=== PATIENT | female | born 1995 | race African-American/Black ===

== ENCOUNTER 2017-08-06 19:00 | Emergency (ER) | payer OTHER, SELFPAY ==
[2017-08-06] MEDS ORDERED: Dexamethasone 4 MG TAB ONE (20:03)
== END 2017-08-06 20:38 | disposition home or self-care (01) ==
LOC: ERS 19:00
DX: J06.9 Acute upper respiratory infection, unspecified (principal); F17.210 Nicotine dependence, cigarettes, uncomplicated
CPT/HCPCS: 94640; J7620; J8540

== ENCOUNTER 2019-02-06 19:23 | Emergency (ER) | payer SELFPAY ==
[2019-02-06] MEDS ORDERED: Proparacaine 0.5% Opth 15 ML BOT ONE ×2 (20:13→20:25)
== END 2019-02-06 20:35 | disposition home or self-care (01) ==
LOC: ERS 19:23
DX: H00.013 Hordeolum externum right eye, unspecified eyelid (principal); F17.210 Nicotine dependence, cigarettes, uncomplicated
CPT/HCPCS: 99283

== ENCOUNTER 2021-05-21 19:05 | Emergency (ER) | payer SELFPAY ==
[2021-05-21 20:00] LABS: #Eosinphils 0.2 thou/uL (0.0-0.7); #Lymphocytes 1.6 thou/uL (1.20-3.40); #Monocytes 0.8 thou/uL (0.11-0.59); #Neutrophils 3.4 thou/uL (1.40-6.50); %Basophils 0.4 % (0.0-1.0); %Eosinophils 2.8 % (0.0-10.0); %Lymphocytes 26.9 % (21.0-51.0); %Monocytes 12.8 % (0.0-10.0); %Neutrophils 57.1 % (42.0-75.0); Hemoglobin 11.6 g/dL (12.0-16.0); Mean Corpuscular HGB CONC 34.9 g/dL (32.0-36.0); Mean Corpuscular Hemoglobin 33.4 pg (27.0-31.0); Mean Corpuscular Volume 95.7 fL (78.0-98.0); Mean Platelet Volume 8.7 fL (7.4-10.4); Platelet Count 240 thou/uL (130-400); RBC Distribution Width 11.9 % (11.5-14.5); Red Blood Cell (RBC) Count 3.46 mill/uL (4.20-5.40)
[2021-05-21 20:21] LABS: ALT (SGPT) 16 U/L (8-55); AST (SGOT) 20 U/L (5-34); Albumin 3.4 g/dL (3.5-5.0); Alkaline Phosphatase 56 U/L (40-110); Anion Gap 12 mmol/L (10-20); BUN (Urea Nitrogen) 8 mg/dL (7.0-18.7); Bilirubin, Total Less than 0.2 mg/dL (0.2-1.2); Calc. Creatinine Clearance 0 mL/min (70-130); Calcium 8.9 mg/dL (7.8-10.44); Carbon Dioxide 22 mmol/L (22-29); Chloride 106 mmol/L (98-107); Globulin 2.8 g/dL (2.4-3.5); Glucose 93 mg/dL (70-105); Potassium 3.8 mmol/L (3.5-5.1); Protein, Total 6.2 g/dL (6.0-8.3); Sodium 136 mmol/L (136-145)
[2021-05-21 20:43] LABS: Bilirubin Negative (Negative); Blood, Urine Negative (Negative); Clarity Clear (Clear); Glucose, Urine (Dipstick) Normal (Negative); Ketone, Urine Negative (Negative); Leukocyte 75 Leu/uL (Negative); Nitrite Negative (Negative); Protein, Urine (Dipstick) Negative (Neg-Trace); RBC/HPF 0-3 HPF (0-3); Renal Epithelial 0-3 HPF (None Seen); Specific Gravity, Urine 1.013 (1.002-1.036); Urobilinogen Normal mg/dL (Less than 2); WBC/HPF 0-3 HPF (0-3)
[2021-05-21 20:44] LABS: Bacteria/HPF 1+ HPF (None Seen)
== END 2021-05-21 21:53 | disposition home or self-care (01) ==
LOC: ERS 19:05
DX: O99.891 Other specified diseases and conditions complicating pregnancy (principal); R42 Dizziness and giddiness; O99.332 Smoking (tobacco) complicating pregnancy, second trimester; F17.210 Nicotine dependence, cigarettes, uncomplicated; Z3A.17 17 weeks gestation of pregnancy
CPT/HCPCS: 36415; 76856; 80053; 81003; 81015; 84702; 85025; 86900; 86901; 93976

== ENCOUNTER 2021-07-14 17:35 | Emergency (ER) | payer SELFPAY ==
[2021-07-14 18:55] LABS: SARS-CoV-2 NAA Rapid Test Not Detected (NotDetected)
== END 2021-07-14 18:24 | disposition home or self-care (01) ==
LOC: ERS 17:35
DX: O99.512 Diseases of the respiratory system complicating pregnancy, second trimester (principal); J06.9 Acute upper respiratory infection, unspecified; Z20.822 Contact with and (suspected) exposure to COVID-19
CPT/HCPCS: 0240U; 99283

== ENCOUNTER 2021-08-03 18:02 | Emergency (ER) | payer SELFPAY ==
[2021-08-03] MEDS ORDERED: Ondansetron ODT 4 MG TAB ONE (18:31)
[2021-08-03 18:36] LABS: Bilirubin Negative (Negative); Blood, Urine Negative (Negative); Glucose, Urine (Dipstick) Negative (Negative); Ketone, Urine Negative (Negative); Leukocyte Moderate (Negative); Nitrite Negative (Negative); Protein, Urine (Dipstick) Negative (Neg-Trace); Urobilinogen 0.2 mg/dL (Less than 2); pH, Urine 5.5 (5.0-9.0)
[2021-08-03 18:47] LABS: Clarity Clear (Clear); Specific Gravity, Urine 1.003 (1.002-1.036)
[2021-08-03 18:50] LABS: RBC/HPF 0-3 HPF (0-3)
== END 2021-08-03 19:25 | disposition home or self-care (01) ==
LOC: ERS 18:02
DX: O21.0 Mild hyperemesis gravidarum (principal); Z3A.24 24 weeks gestation of pregnancy
CPT/HCPCS: 81003; 81015; 99284; Q0162

== ENCOUNTER 2021-08-26 20:03 | Emergency (ER) | payer SELFPAY ==
[2021-08-27 16:30] LABS: SARS-CoV-2 PCR by NAA Not Detected (NotDetected)
== END 2021-08-26 21:15 | disposition home or self-care (01) ==
LOC: ERS 20:03
DX: O99.513 Diseases of the respiratory system complicating pregnancy, third trimester (principal); R05.9 Cough, unspecified; O16.3 Unspecified maternal hypertension, third trimester; Z20.822 Contact with and (suspected) exposure to COVID-19; Z3A.28 28 weeks gestation of pregnancy
CPT/HCPCS: 99284; U0003; U0005

== ENCOUNTER 2021-09-13 18:16 | Emergency (ER) | payer SELFPAY ==
[2021-09-14 10:59] LABS: SARS-CoV-2 PCR by NAA Not Detected (NotDetected)
== END 2021-09-13 19:25 | disposition home or self-care (01) ==
LOC: ERS 18:16
DX: O99.891 Other specified diseases and conditions complicating pregnancy (principal); R05.9 Cough, unspecified; O16.3 Unspecified maternal hypertension, third trimester; Z20.822 Contact with and (suspected) exposure to COVID-19; Z3A.28 28 weeks gestation of pregnancy; Z86.16 Personal history of COVID-19
CPT/HCPCS: U0003; U0005

== ENCOUNTER 2022-01-25 23:06 | Emergency (ER) | payer OTHER ==
[2022-01-26] MEDS ORDERED: Boostrix 0.5 ML (Tdap) VIAL ONE (01:13)
== END 2022-01-26 02:06 | disposition home or self-care (01) ==
LOC: ERS 23:06
DX: S81.052A Open bite, left knee, initial encounter (principal); F17.210 Nicotine dependence, cigarettes, uncomplicated; Z23 Encounter for immunization; W54.0XXA Bitten by dog, initial encounter
CPT/HCPCS: 90471; 90715